=== PATIENT | female | born 1940 | race Caucasian/White ===

== ENCOUNTER → 2017-06-23 | Outpatient (CLI) | payer MEDICARE, MEDICAID ==
[~2017-06-23] MED LIST: CARAFATE 1 GM TA1 G1 PO; PRILOSEC 20 MG20 MG PO; SYNTHROID
== END ==
LOC: M.CT 10:39
DX: J90 Pleural effusion, not elsewhere classified (principal); J98.11 Atelectasis; L92.9 Granulomatous disorder of the skin and subcutaneous tissue, unspecified; G47.33 Obstructive sleep apnea (adult) (pediatric)

== ENCOUNTER → 2017-07-22 | Outpatient (CLI) | payer MEDICARE, MEDICAID | LOC: M.RAD 12:42 | DX: Z12.31 Encounter for screening mammogram for malignant neoplasm of breast (principal); M81.0 Age-related osteoporosis without current pathological fracture; M85.80 Other specified disorders of bone density and structure, unspecified site; R35.1 Nocturia; E78.2 Mixed hyperlipidemia; R73.09 Other abnormal glucose; E55.9 Vitamin D deficiency, unspecified; K21.9 Gastro-esophageal reflux disease without esophagitis; R53.83 Other fatigue; M54.9 Dorsalgia, unspecified; M25.50 Pain in unspecified joint; Z78.0 Asymptomatic menopausal state ==

== ENCOUNTER → 2018-08-10 | Outpatient (CLI) | payer MEDICARE, MEDICAID | LOC: M.RAD 10:10 | DX: Z12.31 Encounter for screening mammogram for malignant neoplasm of breast (principal) ==

== ENCOUNTER → 2018-12-21 | Outpatient (CLI) | payer MEDICARE, MEDICAID ==
[2018-12-23 13:08] LABS: ANA INTERPRETATION Negative (Negative)
== END ==
LOC: M.RAD 15:31
PROVIDERS: General Practice
DX: S63.24 Subluxation of distal interphalangeal joint of finger (principal); M18.9 Osteoarthritis of first carpometacarpal joint, unspecified; M54.9 Dorsalgia, unspecified; D64.9 Anemia, unspecified; X58.XXXA Exposure to other specified factors, initial encounter; Y93.89 Activity, other specified; Y92.89 Other specified places as the place of occurrence of the external cause; Y99.8 Other external cause status